=== PATIENT | male | born 1955 | race Caucasian/White ===

== ENCOUNTER → 2020-02-18 17:44 | Outpatient (CLI) | payer OTHER, SELFPAY | PROVIDERS: PCP Internal Medicine; Referring Provider Internal Medicine; Visit Provider Internal Medicine | DX: Z20.828 Contact with and (suspected) exposure to other viral communicable diseases (principal) | CPT/HCPCS: 87635; C9803; U0003 ==

== ENCOUNTER → 2020-09-05 09:16 | Outpatient (CLI) | payer OTHER, SELFPAY ==
[2020-09-05 10:20] LABS: Absolute Lymphocyte Count 1.06 X10^3/uL (0.83-4.51); Absolute Neutrophil Count 4.2 X10^3/uL (2.0-7.7); Basophil# 0.02 X10^3/uL; Basophil% 0.3 % (0-1); Eosinophil# 0.01 X10^3/uL; Eosinophils% 0.2 % (0-5); Hematocrit 41.5 % (40-54); Hemoglobin 13.6 g/dL (13.0-16.5); Lymphocyte # 1.06 X10^3/ul (0.83-4.51); Lymphocyte % 18.5 % (19-41); Mean Corp Hgb Conc 32.8 g/dL (32-36); Mean Corpuscular Hgb 30.6 pg (27.0-32.0); Mean Corpuscular Volume 93.3 fL (80-94); Mean Platelet Vol. 9.1 fl (6.2-12.0); NRBC Flagged by Analyzer 0 % (0-5); Neutrophil % 73.5 % (47-70); Platelet Count 220 K/mm3 (150-450); RBC Distribution Width CV 11.5 % (11.6-14.6); RBC Distribution Width SD 39.3 fl (35.1-43.9); Red Blood Count 4.45 M/mm3 (4.6-6.2); White Blood Count 5.7 K/mm3 (4.4-11.0)
[2020-09-05 11:20] LABS: ALB/GLOB Ratio 1.2 RATIO (0.9-2.4); AST(SGOT) 10 U/L (15-37); Alanine Aminotransfer ALT/SGPT 22 U/L (16-61); Albumin, Serum 3.8 g/dL (3.2-5.0); Alkaline Phosphatase 85 U/L (45-117); Anion Gap 4 (5-15); BUN 17 mg/dL (7-18); BUN/Creat Ratio 18.4 RATIO (10-20); Calcium,Total 8.9 mg/dL (8.5-10.1); Chloride 104 mmol/L (98-107); Cholesterol 135 mg/dL (200); Creatinine, Serum 0.92 mg/dL (0.70-1.30); EST Glomerular Filtration Rate 87 mL/min (>60); Est Glom Filt Rate - Afr Amer 105 mL/min (>60); Globulin 3.2 g/dL (2.2-4.2); Glucose 115 mg/dL (74-106); High Density Lipoprotein 45 mg/dL; PSA,Total - Annual Screen 1.56 ng/mL (0.00-4.00); Potassium 4.2 mmol/L (3.5-5.1); Sodium Level 137 mmol/L (136-145); Triglycerides 71 mg/dL; Very Low Density Lipoprotein 14 mg/dL (5-40)
== END ==
PROVIDERS: PCP Internal Medicine; Visit Provider Internal Medicine
DX: E78.00 Pure hypercholesterolemia, unspecified (principal); I10 Essential (primary) hypertension; Z12.5 Encounter for screening for malignant neoplasm of prostate
CPT/HCPCS: 36415; 80053; 80061; 84153; 85025; G0103

== ENCOUNTER → 2020-09-30 08:41 | Outpatient (CLI) | payer OTHER, SELFPAY ==
--- NOTE | 2020-09-30 08:49 | AAVD_ITS ---
Reason For Study: dilitation of aorta Aorta Measurements Aorta Doppler Measurements Proximal aorta measures1.92 x 1.97cm. in cross- Peak systolic flow velocities within the proximal sectional axis. aorta measure 105.8 cm/sec. Proximal aorta measures2.14cm. in longitudinal Peak systolic flow velocities within the mid aorta axis. measure 116.1 cm/sec. Mid aorta measures1.62 x 1.6cm. in cross-sectionalPeak systolic flow velocities within the distal axis. aorta measure 107.3 cm/sec. Mid aorta measures1.63cm. in longitudinal axis. Distal aorta measures1.63 x 1.66cm. in cross- sectional axis. Distal aorta measures1.73cm. in longitudinal axis. Left Iliac Artery Left iliac artery measures 1.02 x 1.143 cm. in the cross-sectional axis. Left iliac artery measures 1.02 cm. in the longitudinal axis. Peak systolic velocity in the left iliac artery measures 85.3 cm/sec. Right Iliac Artery Right iliac artery measures .97 x .95 cm. in the cross-sectional axis. Right iliac artery measures 1.04 cm. in the longitudinal axis. Peak systolic velocity in the right iliac artery measures 102.9 cm/sec. VL/Abd Aortic/IVC Duplex scan Interpretation Summary The dimensions of the intra-abdominal aorta are normal, without evidence of ane urysmal dilatation. The iliac arteries are also normal in caliber bilaterally. The intra-abdominal aorta and iliac arteries are patent, demonstrating normal, pulsatile arterial flow and normal p eak systolic velocities. Ordering Physician: Fabienne Belcher Performed By: Edgar Meier RVT and Student
--- NOTE | 2020-09-30 08:49 | CDU_ITS ---
Reason For Study: carotid stenosis Rt. Velocities/BP Lt. Velocities/BP Prox CCA 111.2/21.2 cm/sec. Prox CCA 99.5/27.8 cm/sec. Mid CCA 102.1/23.9 cm/sec. Mid CCA 78.6/21.2 cm/sec. Dist CCA 77.3/14.7 cm/sec. Dist CCA 70.8/21.2 cm/sec. Prox ICA 113.8/25.5 cm/sec. Prox ICA 81.6/21.6 cm/sec. Mid ICA 78.6/17.3 cm/sec. Mid ICA 92.0/28.2 cm/sec. Dist ICA 83.8/29.1 cm/sec. Dist ICA 88.1/28.2 cm/sec. Rt. ICA/CCA = 1.1. Lt. ICA/CCA = 1.2. Prox ECA 98.2/14.7 cm/sec. Prox ECA 83.8/14.7 cm/sec. Rt. Vert. 43.4/5.6 cm/sec. Lt. Vert. 43.8/11.2 cm/sec. Right Extracranial There is homogeneous, smooth atherosclerotic plaque noted in the right common carotid artery. There is heterogeneous, irregular atherosclerotic plaque noted in the right internal carotid artery. There is intimal thickening but no significant atherosclerotic plaque noted in the right external carotid artery. Antegrade flow is noted in the right vertebral artery. Left Extracranial There is intimal thickening but no significant atherosclerotic plaque noted in the left common carotid artery. There is homogeneous, smooth atherosclerotic plaque noted in the left internal carotid artery. There is intimal thickening but no significant atherosclerotic plaque noted in the left external carotid artery. Antegrade flow is noted in the left vertebral artery. Procedure Carotid Duplex [id number]. This is a Carotid Duplex examination using B-mode, color flow and specral Doppler. The exam was diagnostic. Exam performed in department. VL/Carotid Duplex Ultrasound Interpretation Summary Mild (<50%) stenosis right extracranial internal carotid. Mild (<50%) stenosis left extracranial internal carotid. Flow within the vertebral arteries is antegrade bilaterally. Ordering Physician: Fabienne Belcher Performed By: Edgar Meier RVT and Student
== END ==
PROVIDERS: PCP Internal Medicine; Visit Provider Internal Medicine
DX: I77.819 Aortic ectasia, unspecified site (principal); I65.23 Occlusion and stenosis of bilateral carotid arteries
CPT/HCPCS: 93880; 93978

== ENCOUNTER → 2022-03-12 | Outpatient (CLI) | payer OTHER, SELFPAY ==
--- NOTE | 2022-03-12 13:50 | CDU_ITS ---
Reason For Study: STENOSIS Rt. Velocities/BP Lt. Velocities/BP Prox CCA 113.1/10.8 cm/sec. Prox CCA 176.9/23.3 cm/sec. Mid CCA 92.0/19.5 cm/sec. Mid CCA 90.4/24.1 cm/sec. Dist CCA 107.9/20.7 cm/sec. Dist CCA 87.9/16.7 cm/sec. Prox ICA 140.4/19.9 cm/sec. Prox ICA 77.3/12.2 cm/sec. Mid ICA 80.1/19.9 cm/sec. Mid ICA 90.7/24.4 cm/sec. Dist ICA 83.8/25.4 cm/sec. Dist ICA 52.719.5 cm/sec. Rt. ICA/CCA = 140.4/92.0=1.5. Lt. ICA/CCA = 90.7/90.4=1.0. Prox ECA 111.2/8.9 cm/sec. Prox ECA 95.3/14.2 cm/sec. Rt. Vert. 50.3/12.5 cm/sec. Lt. Vert. 41.5/11.2 cm/sec. Right Extracranial There is homogeneous, smooth atherosclerotic plaque noted in the right common carotid artery. There is homogeneous, smooth atherosclerotic plaque noted in the right internal carotid artery. There is intimal thickening but no significant atherosclerotic plaque noted in the right external carotid artery. Antegrade flow is noted in the right vertebral artery. Left Extracranial There is homogeneous, smooth atherosclerotic plaque noted in the left common carotid artery. There is homogeneous, smooth atherosclerotic plaque noted in the left internal carotid artery. There is intimal thickening but no significant atherosclerotic plaque noted in the left external carotid artery. Antegrade flow is noted in the left vertebral artery. Procedure Carotid Duplex [id number]. This is a Carotid Duplex examination using B-mode, color flow and specral Doppler. Exam performed in department. VL/Carotid Duplex Ultrasound Interpretation Summary Moderate (50-69%) stenosis right extracranial internal carotid. Mild (<50%) stenosis left extracranial internal carotid. Patent and antegrade vertebrals bilaterally. Ordering Physician: Fabienne Belcher Referring Physician: Fabienne Belcher Performed By: Yuli Ocampo, IHSAN, RVT
== END | disposition home or self-care (01) ==
LOC: CVS 13:47
PROVIDERS: PCP Internal Medicine; Referring Provider Internal Medicine; Visit Provider Internal Medicine
DX: I65.23 Occlusion and stenosis of bilateral carotid arteries (principal)
CPT/HCPCS: 93880

== ENCOUNTER → 2022-04-27 | Outpatient (CLI) | payer OTHER, SELFPAY ==
--- NOTE | 2022-04-28 10:28 | PFT ---
INTRODUCTION: The patient is a 67-year-old male that presents for pulmonary function studies secondary to a diagnosis of abnormal lung function. Respiratory therapy reported good patient effort. Bronchodilators were used during testing. INTERPRETATION: Forced expiration spirometry demonstrates no evidence of a large airways obstructive ventilatory defect. There was no significant response to aerosolized bronchodilators. Spirograms are of good quality and plateau normally. Body plethysmography was performed and reveals lung volumes to be within normal limits. Diffusing capacity by single breath CO was also within normal limits. IMPRESSION: Grossly normal pulmonary function studies.
== END | disposition home or self-care (01) ==
PROVIDERS: PCP Internal Medicine; Referring Provider Internal Medicine; Visit Provider Internal Medicine
DX: I65.23 Occlusion and stenosis of bilateral carotid arteries (principal); R94.2 Abnormal results of pulmonary function studies
CPT/HCPCS: 94060; 94726; 94729

== ENCOUNTER → 2023-06-03 | Outpatient (CLI) | payer OTHER, SELFPAY ==
--- NOTE | 2023-06-03 09:31 | CDU_ITS ---
Reason For Study: STENOSIS Rt. Velocities/BP Lt. Velocities/BP Prox CCA 95.2/8.4 cm/sec. Prox CCA 107.6/25.3 cm/sec. Mid CCA 91.9/20.4 cm/sec. Mid CCA 113.7/21.6 cm/sec. Dist CCA 99.6/18.2 cm/sec. Dist CCA 78.1/21.6 cm/sec. Prox ICA 150.9/28.5 cm/sec. Prox ICA 72.1/19.3 cm/sec. Mid ICA 90.4/24.1 cm/sec. Mid ICA 89.7/24.8 cm/sec. Dist ICA 83.0/25.3 cm/sec. Dist ICA 87.5/21.5 cm/sec. Rt. ICA/CCA = 150.9/91.9=1.6. Lt. ICA/CCA = 89.7/113.7=0.8. Prox ECA 91.6/10.6 cm/sec. Prox ECA 57.8/9.5 cm/sec. Rt. Vert. 56.0/14.2 cm/sec. Lt. Vert. 36.3/9.2 cm/sec. Right Extracranial There is homogeneous, smooth atherosclerotic plaque noted in the right common carotid artery. There is homogeneous, smooth atherosclerotic plaque noted in the right internal carotid artery. There is intimal thickening but no significant atherosclerotic plaque noted in the right external carotid artery. Antegrade flow is noted in the right vertebral artery. Left Extracranial There is homogeneous, smooth atherosclerotic plaque noted in the left common carotid artery. There is homogeneous, smooth atherosclerotic plaque noted in the left internal carotid artery. There is intimal thickening but no significant atherosclerotic plaque noted in the left external carotid artery. Antegrade flow is noted in the left vertebral artery. VL/Carotid Duplex Ultrasound Interpretation Summary Moderate (50-69%) stenosis right extracranial internal carotid. Mild (<50%) stenosis left extracranial internal carotid. Patent and antegrade vertebrals bilaterally. Ordering Physician: Fabienne Belcher Referring Physician: Fabienne Belcher Performed By: Yuli Ocampo, IHSAN, RVT
== END | disposition home or self-care (01) ==
LOC: CVS 09:31
PROVIDERS: PCP Internal Medicine; Referring Provider Internal Medicine; Visit Provider Internal Medicine
DX: I65.23 Occlusion and stenosis of bilateral carotid arteries (principal)
CPT/HCPCS: 93880